=== PATIENT | female | born 1985 | race Caucasian/White ===

== ENCOUNTER → 2016-12-19 | Outpatient (REF) ==
--- NOTE | 2016-12-20 01:29 | REP ---
Clinical: Pain and disability. Technique: AP, lateral, bilateral oblique and sunrise views of the left knee. Findings: Increased sclerosis to the tibial plateau and undersurface of the patella as well as subtle cortical irregularity to the femoral condyles with spurring along the lateral femoral condyle suggest mild tricompartmental degenerative changes. No acute fracture or dislocation. No obvious effusion. No periarticular or intra-articular calcifications noted. Impression: Mild degenerative changes suggested. Signed by Levy Leigh MD 12/20/2016 01:21 A
== END | disposition home or self-care (01) ==
LOC: M SMT 14:05
PROVIDERS: ATTEND Internal Medicine
DX: Z02.71 Encounter for disability determination (principal)